=== PATIENT | female | born 2000 | race Caucasian/White ===

== ENCOUNTER 2022-03-08 14:32 | Emergency (ER) | payer OTHER ==
[~2022-03-08] VITALS: Ht 167.6 cm; Wt 113.4 kg
[2022-03-08 14:32] VITALS: BP 125/78
--- NOTE | 2022-03-08 14:35 | NUR ---
GIA US AT BEDSIDE FOR [id number]
--- NOTE | 2022-03-08 15:00 | NUR ---
21YO FEMALE PT BIBA FROM HOME. PER [facility] , PT GOT IN ARGUMENT WITH DAD AND TOOK 1OX TRAZDONE X1 HOUR PRIOR TO ARRIVAL. [facility] REPORTS VOMIT X2 PRIOR TO TRANSPORT. UPON ARRIVAL PT NOT IN VISIBLE DISTRESS, RESPIRATIONS EVEN AND UNLABORED , TALKING IN FULL SENTENCES. PT REPORTS FEELING MILD WEAKNESS AND NAUSEA. DENIES CHEST PAIN OR LIGHTHEADEDNESS. PT STATES " WANTING TO GET AWAY" AND " DISAPPEARING FOR A WHILE" DENIES SELF HARM AT THIS TIME AND TAKING MEDICATION WAS AN "IMPULSE REACTION". PT IN VIEW, PUT ON MONITOR. BED LOCKED AT LOWEST POSITION, BED RAIL UP X2. HX: DEPRESSION, ANXIETY NKA
--- NOTE | 2022-03-08 15:11 | NUR ---
SPOKE TO ANTON FROM [facility] STATES TO MONITOR FOR SEIZURES, HYPOTENSION OBSERVATION APPROX 4-6HOURS. IF QRS GREATER THAN 500 TREAT WITH MAGNESIUM 2MG IV. DR GARCIA MADE AWARE
[2022-03-08 15:34] LABS: BASOPHILS % (AUTO) 0.4 % (0.0-2.0); EOSINOPHILS # (AUTO) 0.1 K/uL (0-0.4); EOSINOPHILS % (AUTO) 1.6 % (0.0-4.0); HEMATOCRIT 37.2 % (36-48); HEMOGLOBIN 12.7 g/dL (12.0-16.0); LYMPHOCYTES # (AUTO) 1.2 K/uL (2.5-16.5); LYMPHOCYTES % (AUTO) 18.5 % (20.5-51.1); MEAN CORPUSCULAR HEMOGLOBIN 28 pg (27-31); MEAN CORPUSCULAR HGB CONC 34 g/dL (33-37); MONOCYTES # (AUTO) 0.5 K/uL (0.8-1.0); MONOCYTES % (AUTO) 7.3 % (1.7-9.3); NEUTROPHILS # (AUTO) 4.7 K/uL (1.8-7.7); NEUTROPHILS % (AUTO) 72.2 % (42.2-75.2); PLATELET COUNT (AUTO) 256 K/uL (140-450); RED BLOOD CELL COUNT(AUTO) 4.48 MIL/uL (4.20-5.40); WHITE BLOOD COUNT (AUTO) 6.5 K/uL (4.5-11.0)
[2022-03-08 15:39] LABS: APPEARANCE,URINE CLEAR (CLEAR); BILIRUBIN,URINE NEGATIVE (NEGATIVE); BLOOD, URINE NEGATIVE (NEGATIVE); COLOR,URINE YELLOW (YELLOW); LEUKOCYTE ESTERASE ,URINE NEGATIVE (NEGATIVE); NITRITE, URINE NEGATIVE (NEGATIVE); PH,URINE 5.5 (5.0-9.0); UGLUCOSE NEGATIVE (NEGATIVE)
[2022-03-08 15:58] LABS: ALBUMIN 3.5 g/dL (3.4-5.0); CARBON DIOXIDE 25.6 mmol/L (21-32); CHLORIDE 102 mmol/L (98-107); CREATININE 0.7 mg/dL (0.6-1.3); GFR ARICAN-AMERICAN 137 mL/min (>90); GLUCOSE 103 mg/dL (74-106); POTASSIUM 3.9 mmol/L (3.5-5.1); TOTAL BILIRUBIN 0.5 mg/dL (0.0-1.0); UREA NITROGEN, BLOOD 13 mg/dL (7-18)
[2022-03-08 16:15] LABS: SALICYLATE < 2.8 mg/dL (2.8-20.0)
[2022-03-08 16:36] LABS: ANION GAP 12.3 (8-16); SODIUM SERUM 136 mmol/L (136-145)
[2022-03-08 16:45] LABS: ASPARTATE AMINOTRANSFERASE 28 U/L (15-37)
[2022-03-08 17:21] LABS: ACETAMINOPHEN < 0.5 ug/ml (10-30)
--- NOTE | 2022-03-08 17:49 | NUR ---
PT SWABBED FOR COVID(MALA & NOVEL) . WALKED TO LAB
[2022-03-08 17:53] LABS: RBC,URINE 0-5 /HPF (0-5); WBC,URINE 0-5 /HPF (0-5)
--- NOTE | 2022-03-08 18:25 | NUR ---
PT PROVIDED WITH DINNER. PT EATING IN BED
--- NOTE | 2022-03-08 18:27 | NUR ---
PT IS MEDICALLY CLEARED BY DR KIMBROUGH. 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
--- NOTE | 2022-03-08 19:25 | NUR ---
REPORT GIVEN TO EILEEN SEGUNDO. ALL QUESTIONS ANSWERED. TRANSFER OF CARE AT THIS TIME
--- NOTE | 2022-03-08 21:02 | NUR ---
SPOKE TO MADHURI FROM [facility] FOLLOWING UP ON PATIETN, FROM [facility] REPORT. STATED THAT THEY REC. ANOTHER EKG TO BE PERFORMED AND PATIETNS QTC SHOULD BE <470. IF NOT THEN THEY REC. POTASSIUM AND MAGNESIUM TO BE GIVEN. MD KIMBROUGH AWARE.
--- NOTE | 2022-03-08 23:11 | NUR ---
SPOKE TO [facility]AD[facility]. UPDATED ON PATIENT STATUS. THEY REC IS TO GIVE POTASSIUM AND MAGNESIUM. MD JAMES AMATO. STATED THAT HE WILL BE WAITING TILL 6AM REPEATING EKG AND REASSESSING THE SITUATION TO EITHER GIVE POTASSIUM AND MAGNESIUM OR TO HOLD.
--- NOTE | 2022-03-09 | NUR ---
PATIENT APPEARS TO BE RESTING IN BED. RR EVEN AND UNLABORED ROYCE. DOESNT APPEAR TO BE IN ANY RR DISTRESS. BED LOW AND LOCKED. ALL NEEDS MET.
--- NOTE | 2022-03-09 03:57 | NUR ---
VERBAL ORDER GIVEN BY MD NORRIS. VITAL Q4H. VERBAL READBACK. ORDERS CARRIED OUT
--- NOTE | 2022-03-09 05:15 | NUR ---
SPOKE TO MILTON FROM [facility]. UPDATED ON PATIETN STATUS AND LABS. STATED THAT THEY WILL ACCEPT AND ARE WORKING ON ADMITTING PROCESS FOR PATIENT. STATED THEY WOULD CALL ONCE THEY FIND PLACEMENT AND THEY SET UP TRANSPORTATION.
--- NOTE | 2022-03-09 06:15 | NUR ---
PATIENT AMBULATED TO THE AND BACK TO BED 7., PATIENT RQ WATER. TOLERATED WELL. IS CURRENTLY SITTING UP IN BED. BED LOW AND LOCKED. SIDE RAIL UP FOR SAFETY. ALL NEEDS MET.
--- NOTE | 2022-03-09 07:20 | NUR ---
REPORT GIVEN TO RATNA ESPAÑA. TRANSFER OF CARE
[2022-03-09] MEDS ORDERED: MAG SULF 2000 MG/WATER PREMIX 50 ML IV ONE (07:25)
--- NOTE | 2022-03-09 07:25 | NUR ---
REPORT GIVEN TO TANYA GARCÍA AT [facility]. NURSE STATED THAT SHE WAS GOING TO FOLLOW UP AND UPDATE THE DOCTOR ON PATIENT STATUS. WHEN CLEARED BY THEIR DOCTOR, THEY WILL CALL BACK WITH ARRANGED TRANSPORTATION AND ROOM.
--- NOTE | 2022-03-09 07:25 | NUR ---
Recieved report from RATNA Fernandez for transfer of care.
[2022-03-09 08:05] LABS: BARBITURATE, URINE NEGATIVE ng/ml (NEG <=200); BENZODIAZEPINE, URINE NEGATIVE ng/mL (NEG <=200); CANNABINOID, URINE NEGATIVE ng/mL (NEG <=50); COCAINE, URINE NEGATIVE ng/mL (NEG <=300); OPIATE, URINE NEGATIVE ng/mL (NEG <=2000); PHENCYCLIDINE SCREEN,URINE NEGATIVE ng/mL (NEG <=25)
--- NOTE | 2022-03-09 08:23 | NUR ---
[facility] CALLED-AFTER MAG IVF REPEAT EKG
--- NOTE | 2022-03-09 08:31 | NUR ---
PATIENT WAS GIVEN HER BREAKFAST TRAY. PATIENTS MOM IS AT BEDSIDE.
--- NOTE | 2022-03-09 09:01 | NUR ---
Patient to be transferred to [facility]. Is being transferred due to HIGHER LEVEL OF CARE. Receiving facility has accepting physician and available space. ER physician has signed transfer form. Patient or responsible constitution party has agreed to transfer and signed form. Patient belongings inventoried and will be sent with patient. Copy of nursing notes, lab reports, EKG, Physicians Orders and X-rays to be sent with patient. Report called to [facility] at receiving facility. [facility] ambulance service has been called for transfer. ETA is [id number].
--- NOTE | 2022-03-09 09:17 | NUR ---
EKG AT BEDSIDE.
--- NOTE | 2022-03-09 09:21 | NUR ---
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 PATIENT IS NOT MEDICALLY CLEARED YET.
[2022-03-09 09:24] VITALS: BP 143/75
--- NOTE | 2022-03-09 12:06 | NUR ---
Patient discharged with v/s stable. Written and verbal after care instructions given and explained. Patient alert, oriented and verbalized understanding of instructions. [facility] TO [facility]. All questions addressed prior to discharge. ID band removed. Patient advised to follow up with PMD.NO Rx given. Patient educated on indication of medication including possible reaction and side effects. Opportunity to ask questions provided and answered.
== END 2022-03-09 12:06 ==
LOC: MED 14:32
DX: T43.212A Poisoning by selective serotonin and norepinephrine reuptake inhibitors, intentional self-harm, initial encounter (principal); Z20.822 Contact with and (suspected) exposure to COVID-19; F41.9 Anxiety disorder, unspecified; F32.9 Major depressive disorder, single episode, unspecified; Y92.89 Other specified places as the place of occurrence of the external cause
CPT/HCPCS: 36415; 80053; 80305; 81001; 81025; 85025; 87086; 87426; 93005; 96365; 96366; 99285; G0480; G0482; J3475